=== PATIENT | male | born 1940 | race Caucasian/White ===

== ENCOUNTER 2018-07-07 06:47 | Observation (INO) ==
--- NOTE | 2018-07-03 14:31 | EKG Report ---
Test Performed on : 07/03/2018 2:13:04 PM Test Reason : PAT Blood Pressure : / mmHG Vent. Rate : 076 BPM Atrial Rate : 076 BPM P-R Int : 180 ms QRS Dur : 086 ms QT Int : 392 ms P-R-T Axes : 075 070 100 degrees QTc Int : 441 ms Normal sinus rhythm. Nonspecific ST abnormality Abnormal ECG When compared with ECG of 24-SEP-2017 09:39, (Unconfirmed) No significant change was found Confirmed by Loki WALKER, Zaire Johnson ([id number]) on 07/04/2018 5:41:20 PM
[2018-07-03 15:17] LABS: BASO# 0.04 X1000 (0.0-0.2); BASO% 0.5 % (0.0-0.8); EOS# 0.62 X1000 (0.0-0.7); EOS% 8.3 % (0.0-10.0); HEMATOCRIT 41.3 % (42.0-52.0); HEMOGLOBIN 13.2 g/dL (14.0-18.0); LYMPH% 17.5 % (20.5-51.1); MCH 30.1 PG (27-31); MCV 94.3 FL (81-99); MONO# 0.69 X1000 (0.11-0.59); MONO% 9.3 % (1.7-9.3); MPV 12.2 FL (7.4-10.4); NEUT# 4.78 X1000 (1.4-6.5); NEUT% 64.4 % (42.2-75.2); PLT 267 X1000 (130-400); RBC 4.38 XMIL (4.7-6.1); RDW 14.5 % (11.5-14.5); WBC 7.43 X1000 (4.8-10.8)
[2018-07-03 15:48] LABS: CALCIUM 9.8 mg/dL (8.8-10.2); CREATININE 2.9 mg/dL (0.7-1.2); POTASSIUM 3.5 mmol/L (3.5-5.1)
[2018-07-07] MEDS ORDERED: XYLOCAINE-MPF 2% ONE (07:14)
[2018-07-07] MEDS ORDERED: DIPRIVAN 1% ONE (07:14)
[2018-07-07] MEDS ORDERED: HEPARIN ONE (08:10)
[2018-07-07] MEDS ORDERED: SENSORCAINE 0.5%-EPI 1:200,000 ONE (08:10)
[2018-07-07] MEDS ORDERED: NS 1,000 ML ONE (08:10)
[2018-07-07] MEDS ORDERED: KEFZOL 1 GM/D5W 1 GM/50 ML IVPB ONE (08:12)
[2018-07-07] MEDS ORDERED: 1/2 NS 500 ML ONE (08:12)
[2018-07-07] MEDS ORDERED: NEO-SYNEPHRINE ONE (08:37)
[2018-07-07] MEDS ORDERED: SODIUM CHLORIDE 0.9% 10 ML ONE (08:37)
[2018-07-07] MEDS ORDERED: ZOFRAN ONE (09:42)
[2018-07-07] MEDS ORDERED: HEPARIN (DOSE) ONE (09:43)
[2018-07-07] MEDS ORDERED: SALINE LOCK IV FLUID XX ONE (10:08)
[2018-07-07] MEDS: DILAUDID ONE ×2 (10:46→10:54)
[2018-07-07] MEDS ORDERED: ZOFRAN IV PRN (11:49)
[2018-07-07] MEDS ORDERED: NORCO-5 PO PRN (11:49)
--- NOTE | 2018-07-07 13:43 | OPERATIVE NOTE ---
PROCEDURE DATE: 07/07/2018 PREOPERATIVE DIAGNOSIS: Chronic kidney disease. POSTOPERATIVE DIAGNOSIS: Chronic kidney disease. PROCEDURES PERFORMED: 1. Left wrist radiocephalic arteriovenous fistula. 2. Ultrasound mapping of his left forearm was performed. ESTIMATED BLOOD LOSS: 10 mL. SPECIMENS: None. ANESTHESIA: General. INDICATIONS: This is an 78-year-old gentleman with chronic kidney disease approaching end-stage needs long-term hemodialysis access. OPERATIVE FINDINGS: There appeared to be an adequate caliber cephalic vein at the wrist. It was soft and patent with an adequate caliber radial artery. OPERATIVE NOTE: Risks, benefits, and alternatives discussed with the patient and he consented to the procedure. He is seen preoperatively and surgical site was marked. He was then taken to the operating room, and placed in supine position. General anesthesia was induced without complication. All bony prominence were padded. After prepping his arm with chlorhexidine solution and draping, excluding the hand, we performed a time-out. Focused ultrasound of the left wrist with above findings. After satisfactory ultrasound, we made a longitudinal incision between the radial artery pulse and the cephalic vein, visualized the vein and was of adequate caliber. We then dissected out the artery circumferentially and encircling it with vessel loops, and then ligated the vein distally after marking the anterior surface of it and noted some backbleeding. We dilated this with heparinized saline. After having 3000 units of intravenous heparin was administered, we occluded the artery after adequate circulation time. A longitudinal arteriotomy with 7-0 Prolene suture in a running fashion. We created an end-to-side anastomosis. Hemostasis was noted. There was a strong thrill in the vein and this began dilating nicely and adequate distal pulse hand remained pink. We confirmed hemostasis. Closed the deep dermis with interrupted 3-0 Vicryl sutures. Skin was closed with 4-0 Monocryl in subcuticular fashion. Dermabond was applied. Counts correct. A strong thrill and good perfusion distally noted. I spoke with the family. Counts correct. cc: Scar Diaz MD
[2018-07-07] MEDS ORDERED: LUMIGAN 0.01% OPH SOLUTION BOTH EYES SCH (21:00)
[2018-07-07] MEDS ORDERED: FLOMAX PO SCH (21:00)
[2018-07-07] MEDS ORDERED: DESYREL PO SCH (21:00)
[2018-07-07] MEDS ORDERED: PATIENT'S OWN MED PO SCH (21:00)
[2018-07-07] MEDS ORDERED: LIPITOR PO SCH (21:00)
[2018-07-07] MEDS: RAZADYNE PO SCH (22:37)
[2018-07-07] MEDS: PERIDEX MT SCH (22:38)
[2018-07-07] MEDS: ROBAXIN PO SCH (22:38)
--- NOTE | 2018-07-08 06:53 | GENERAL SURGERY PROGRESS NOTE ---
DATE: 07/08/2018 SUBJECTIVE: The patient seems to be doing okay. No major issues. OBJECTIVE: Vital Signs: The patient is currently afebrile. His vital signs are stable. General: No acute distress. Cardiovascular: Regular rate and rhythm. Lungs grossly clear. Abdomen soft, nontender, nondistended. Extremities: There seems to be flow in his fistula noted in his left arm. ASSESSMENT AND PLAN: An 78-year-old, status post creation of left radiocephalic AV fistula. Postoperative state. At this time, I think the patient can be discharged home. We will make sure he tolerates breakfast and discharge him later today. cc: MD Scar Lui MD
[2018-07-08] MEDS ORDERED: SYNTHROID PO SCH (07:00)
[2018-07-08 07:26] VITALS: BP 132/70
[2018-07-08] MEDS: PERIDEX MT SCH (08:58)
[2018-07-08] MEDS: DILAUDID ONE (08:59)
[2018-07-08] MEDS ORDERED: ASPIRIN PO SCH (09:00)
[2018-07-08] MEDS: ROBAXIN PO SCH (09:00)
[2018-07-08] MEDS ORDERED: NORVASC PO SCH (09:00)
[2018-07-08] MEDS ORDERED: ZYRTEC PO SCH (09:00)
[2018-07-08] MEDS ORDERED: ARICEPT PO SCH (09:00)
[2018-07-08] MEDS ORDERED: SINGULAIR PO SCH (09:00)
[2018-07-08] MEDS ORDERED: PAXIL PO SCH (09:00)
[2018-07-08] MEDS ORDERED: HYDROCHLOROTHIAZIDE PO SCH (09:00)
[2018-07-08] MEDS ORDERED: CLARITIN PO SCH (09:00)
[2018-07-08] MEDS: RAZADYNE PO SCH (09:00)
[2018-07-08] MEDS ORDERED: VITAMIN B-12 PO SCH (09:00)
[2018-07-08] MEDS ORDERED: LOFIBRA PO SCH (09:00)
[2018-07-08] MEDS ORDERED: OSCAL 500 + D PO SCH ×2 (09:00)
== END 2018-07-08 09:24 | disposition home or self-care (01) ==
LOC: OR 06:47 → INTOOBSV 11:48 → 4N 11:48
PROVIDERS: ADMIT Surgery; ATTEND Surgery
CPT/HCPCS: 80048; 85025; 93005; 93010; 94799; A9270; J0690; J1170; J1644; J2370; J2405; J7030